=== PATIENT | female | born 1950 | race Hispanic/Latino ===

== ENCOUNTER 2020-06-15 20:08 | Inpatient (IN) | payer MEDICARE, OTHER ==
--- NOTE | 2020-06-15 21:20 | PDOC.FPRHP ---
- History of Present Illness Chief Complaint: Dysphagia History of Present Illness: Pt is a 69 yo F who presents as [facility] transfer to our facility for dysphagia and syncope. Patient states that one day ago she had a fall where she "blacked out" and woke up on the floor of her bedroom. She states that she was walking from her bathroom to her bedroom when the next thing she remembers is waking up on the floor. She admits to dizziness prior to her syncopal episode. This is the first time she has experienced this. This was an unwitnessed event. She admits to generalized weakness which has been an ongoing issue for her and attributes this to her dysphagia and inability to eat. In August of 2019 she started to experience dysphagia with foods and reportedly had multiple ER visits starting in the summer for her dysphagia which did not prompt any inpatient workup. She states that in April, she was seen by a GI outside of [facility] who placed an esophageal stent and removed it one week later. Pt did not fi nd improvement of her symptoms. She was told that her previous gastric sleeve surgery many years ago could have been the cause to her esophageal issues. She has been unable to eat or swallow any foods. She has been living off of [employer], and [email or web address] for the past 9 months. She has daily nausea and GERD symptoms. ED Course: LR - Allergies/Adverse Reactions Allergies Allergy/AdvReac Type Severity Reaction Status Date / Time levofloxacin [From Levaquin] Allergy Unknown Swelling Verified 06/15/20 23:57 Penicillins Allergy Unknown Hives Verified 06/15/20 23:57 Sulfa (Sulfonamide Allergy Unknown Swelling Verified 06/15/20 23:57 Antibiotics) SUDAFEN COLD-ALLERGY Allergy Unknown Rash Uncoded 06/15/20 23:57 - History PMHx: -HTN PSHx: -Laprascopic band surgery/gastric sleeve, 1993 -Abdominal hernia repair, 2016 -R breast lumpectomy FHx: -no family hx of cancer Social: -lives alone -previous smoker, quit 15 years ago, 30 pack year history -drinks a "full glass" of whiskey every night -no drug use - Review of Systems General: reports: weight/appetite/sleep changes. denies: fever/chills, fatigue Eyes: denies: vision changes ENT: denies: nasal congestion, rhinorrhea Respiratory: denies: cough, congestion, shortness of breath Cardiovascular: denies: chest pain, palpitation, edema Gastrointestinal: reports: nausea. denies: vomiting, diarrhea, constipation, abdominal pain, GI bleeding Genitourinary: denies: dysuria, polyuria Skin: denies: rashes, itching Musculoskeletal: denies: pain, tenderness, stiffness Neurological: reports: syncope, weakness. denies: numbness - Vital signs BP: 125/67, Pulse: 91, Resp: 20, Temp: 99.1 (Oral), Pain: 0, O2 sat: 99 on (Room Air), Time: 06/15/2020 20:25. VITAL SIGNS SunJun 15, 2020 21:30 Sherry RN, Diandra BP: 104/62, Pulse: 94, Resp: 16, Pain: 0, O2 sat: 100 on (Room Air), Time: 06/15/2020 21:30. - Physical Exam Constitutional: NAD, awake, alert and oriented, other (malnurished appearing) HEENT: normocephalic and atraumatic, grossly normal vision, grossly normal hearing Neck: supple Chest: no-tender to palpation Heart: RRR, normal S1/S2, no murmurs/rubs/gallops Lungs: CTAB, no respiratory distress, good air movement, no rales/rhonchi, no wheezing, no retractions Abdomen: soft, non-tender, bowel sounds present, no masses/distention Musculoskeletal: normal structure, ROM grossly normal Neurological: no focal deficit Skin: no rash/lesions, no jaundice, other (cap refill ~ 3 sec) Heme/Lymphatic: no unusual bruising or bleeding Psychiatric: normal mood and affect, good judgment and insight, intact recent and remote memory FMR H&P: Results - Labs Result Diagrams: 06/17/20 05:54 06/17/20 14:04 FMR H&P: A/P - Plan ##Syncope -DDX: hypovolemia, malnourishment, cardiac etiology -troponin neg initially -CTA head/neck, CT head -ECHO -admit to telemetry ##Malnourishment secondary to esophageal stricture -NPO @ 12AM in anticipation for GI consultation -dietary consulted -pre-albumin -control N/V with zofran prn ##Normocytic Anemia -Hgb 9.3, MCV 95 -iron studies ordered, b12, folate -peripheral smear ordered ##Metabolic Acidosis -Bicarb less than 9, CO2 18, pH 7.32 -respiratory compensation -most likely due to malnourished state and hx of vomiting Chronic Medical Conditions: ##HTN: pt has hx of HTN, unsure of medication she is on CODE: FULL VTE: Lovenox mIVF PCP: CC Dispo: admitted inpatient telemetry. syncopal w/u pending. GI consult in AM. FMR H&P: Upper Level - Plan Date/Time: 06/15/202119 I, Ben Wong PGY3, have evaluated this patient and agree with findings/plan as outlined by video intern resident. Pertinent changes/additions are listed here. 69-year-old female history of bariatric surgery Presents for vomiting and syncope. She has had recurrent vomiting since August 2019 and began to see gastroenterology. Later that year surgically cut the bariatric band and introduced esophageal stent. She has had several EGDs. Reports chronic decreased p.o. intake over the last year and currently does not tolerate solid food. On presentation to outside ER she was found to have bicarb of 9 pH of 7.34. Patient also states she had a syncopal episode at home 2 days ago, denied any chest pain or shortness of breath prior to event. This was unwitnessed at home where she lives alone. On exam patient is cachectic and obviously malnourished, cardiopulmonary exam within normal limits Assessment and plan Syncope Likely secondary to dehydration and malnourishment however considering unwitnessed event will admit to telemetry for full syncope work-up. Will get brain CT, CT angiogram of head and neck, echocardiogram, monitor electrolytes and monitor on telemetry. Malnourishment secondary to esophageal stricture We do not have records but patient seems to be adequate historian, will consult GI in the morning, consult nutrition. NPO for possibility of EGD, then will restart full liquid diet. Will add prealbumen to labs Metabolic Acidosis with respiratory compensation Etiology multifactoral including vomiting (though chloride borderline low) and dehydration. Bicarb less than 9, CO2 18, pH 7.32. By Diaz formula Respiratory compensation is appropriate. Likely will resolve by feeding. Per plan above. Intractible vomiting 2/2 esophageal stricture Zofran prn, otherwise f/u GI recs once consulted in AM normocytic anemia Likely multifactoral, suspect multiple nutritional deficiencies. Will get iron studies, B12, folate, retic count, and peripheral smear HTN MD aware, will restart home med if pt is able to remember what it is CODE: Full dispo: inpt, expect > 2 midnights Addendum - Attending - Attending Attestation Date/Time: 06/17/201999 I personally evaluated the patient and discussed the management with Dr. Correia at last visit. I agree with the History, Examination, Assessment and Plan documented above with any addition or exceptions noted below.
[2020-06-15] MEDS ORDERED: Ondansetron PF 4 MG/2 ML Vial IVP PRN (23:02)
[2020-06-15] MEDS ORDERED: Ondansetron ODT 4 MG TAB PO PRN (23:02)
[2020-06-15] MEDS ORDERED: Acetaminophen 325 MG TAB PO PRN (23:02)
[2020-06-16] MEDS: Sodium Chloride 0.9% 1,000 ML IV SCH ×2 (00:15→06:03)
[2020-06-16 03:37] LABS: Reticulocyte Count 2.3 % (0.5-1.5)
[2020-06-16 03:53] LABS: Band 1 % (5-11); Hemoglobin 8.1 g/dL (12.0-16.0); Hypochromia SLIGHT = 6-15 cells (100X) (0-5/hpf); Lymphocytes 33 % (21-51); MDiff Complete? YES; Mean Corpuscular HGB CONC 32.9 g/dL (32.0-36.0); Mean Corpuscular Hemoglobin 33.5 pg (27.0-31.0); Mean Platelet Volume 8.3 fL (7.4-10.4); Monocytes 6 % (0-10); Neutrophil 59 % (42-75); Platelet Count 307 thou/uL (130-400); Platelet Morphology Comment Appears Adequate; RBC Distribution Width 14.3 % (11.5-14.5); Red Blood Cell (RBC) Count 2.42 mill/uL (4.20-5.40); Target Cells SLIGHT = 2-5 cells (100X) (0-1/hpf); White Blood Cell (WBC) Count 3.4 thou/uL (4.8-10.8)
[2020-06-16 03:56] LABS: ALT (SGPT) 93 U/L (8-55); AST (SGOT) 175 U/L (5-34); Albumin 2.7 g/dL (3.4-4.8); Alkaline Phosphatase 121 U/L (40-110); Anion Gap 19 mmol/L (10-20); BUN (Urea Nitrogen) 7 mg/dL (9.8-20.1); Bilirubin, Total 1.1 mg/dL (0.2-1.2); Calc. Creatinine Clearance 92 mL/min (70-130); Calcium 7.6 mg/dL (7.8-10.44); Carbon Dioxide 14 mmol/L (23-31); Chloride 106 mmol/L (98-107); Globulin 2.4 g/dL (2.4-3.5); Glucose 87 mg/dL (80-115); Iron 73 ug/dL (50-170); Iron Binding Capacity, Total 71 mcg/dL (265-497); Potassium 3.9 mmol/L (3.5-5.1); Protein, Total 5.1 g/dL (5.8-8.1); Sodium 135 mmol/L (136-145)
[2020-06-16 05:05] LABS: Ferritin 3063.38 ng/mL (10-291)
--- NOTE | 2020-06-16 05:56 | PDOC.FM ---
- Subjective Subjective: Resting comfortably in bed. ECHO done this am. Denies CP, SOB, abdominal pain. Reports that she used to drink more heavily in the past, but does endorse 1 full glass of whiskey a day now. She saw Dr. Praful Garcia for her esophageal stent. - Objective MAR Reviewed: Yes Vital Signs & Weight: Vital Signs (12 hours) Temp Pulse Resp BP Pulse Ox 06/16/20 03:45 98.9 F 86 16 124/60 97 06/16/20 00:00 79 06/15/20 22:55 98.5 F 86 16 139/69 100 Weight Weight 70.42 kg Result Diagrams: 06/16/20 03:22 06/16/20 03:22 EKG Reviewed by me: Yes (SR) Phys Exam - Physical Examination Constitutional: NAD HEENT: moist MMs Respiratory: no wheezing, no rales, clear to auscultation bilateral Cardiovascular: RRR Gastrointestinal: soft, non-tender Musculoskeletal: no edema Psychiatric: normal affect Skin: no rash Dx/Plan - Plan Plan: ##Syncope -DDX: hypovolemia, malnourishment, cardiac etiology -troponin neg initially -CTA head/neck: normal -ECHO - pending -will obtain orthostatics -transfer to medical ##Malnourishment -likely secondary to esophageal pathology vs. history of gastric band -called GI who recommended that patient f/u with previous surgeon, will attempt to reach surgeon for recommendations, if unable will consult out bariatric surgeons -dietary consulted -pre-albumin:12 -control N/V with zofran prn ##Macrocytic Anemia -Hgb 8.1, MCV 102 -Folate: 3.4, will begin supplementation, likely 2/2 to alcohol and poor nutritional intake ##Transaminitis -AST/ALT: 175/93 -could be 2/2 to alcohol -will obtain hep panel, RUQ Chronic Medical Conditions: ##HTN: pt has hx of HTN, unsure of medication, will contact pharmacy Dispo: admitted inpatient telemetry. syncopal w/u pending. GI consult in AM. Addendum - Attending - Attending Attestation Date/Time: 06/16/20 1059 I personally evaluated the patient and discussed the management with Dr. ha. I agree with the History, Examination, Assessment and Plan documented above with any addition or exceptions noted below. She has obvious physical and laboratory findings consistent with protein calorie malnutrition. We are going to attempt to contact her bariatric surgeon in [place] today to either arrange transfer or close outpatient followup. If we are unable to contact her surgeon, we will consult a provider from our bariatric team in the hospital. Dietary consult placed today as well. RUQ US for elevated LFTs. Also need to consider how her alcohol use is contributing to her disease processes. Echo will complete her syncope evaluation. No events overnight on tele so this is likely related to volume depletion. if tte negative will move to medical floor.
[2020-06-16] MEDS: Enoxaparin Sodium 40 MG/0.4 ML SYRINGE SC SCH (07:42)
--- NOTE | 2020-06-16 08:50 | CT ---
CTA OF THE HEAD WITH AND WITHOUT IV CONTRAST CTA OF THE NECK WITH IV CONTRAST: INDICATION: History of syncopal episode. TECHNIQUE: A CTA of the head with and without IV contrast was performed utilizing IV contrast and 3D reformatted images. A CTA of the neck was performed utilizing IV contrast and 3 D reformatted imaging. Axial, coronal, and sagittal reformatted images were constructed from the raw data. COMPARISON: None. FINDINGS: CT OF THE HEAD WITHOUT CONTRAST: No acute infarct, hemorrhage, or hydrocephalus is present. There is mild chronic small-vessel white matter ischemic change. Septum pellucidum and third ventricle are midline. Mastoid air cells and pa ranasal sinuses are clear. The skull is intact. CTA OF THE HEAD: There are mild vascular calcifications involving the cavernous ICAs. No hemodynamically significant stenosis, occlusion, or aneurysmal formation is evident. No abnormal enhancement is demonstrated. CTA OF THE NECK: There are mild vascular calcifications involving the aortic arch. The brachiocephalic artery origin is patent. The right subclavian artery origin is patent. The right vertebral artery is patent. The right common carotid artery is patent. The carotid bifurcation and cervical right ICA is patent. T he left common carotid artery, carotid bifurcation, and cervical left ICA is patent. The left subcla vian artery is patent. The left vertebral artery is patent throughout its cervical course. The visualized aerodigestive tract appears within normal limits. The parotid, submandibular, and thy roid gland appear within normal limits. No definite enlarged lymph nodes are evident. There is emph ysematous change involving the lung apices. No definite acute osseous abnormality is evident. There is scattered degenerative and osteoarthritic change. IMPRESSION: 1. No hemodynamically significant stenosis, occlusion, or aneurysmal formation involving the head or neck. 2. Mild chronic small-vessel white matter ischemic change. POS: BH
[2020-06-16] MEDS ORDERED: Iopamidol-370 76% 500 ML 1 ML ONE (10:19)
--- NOTE | 2020-06-16 11:59 | ULT ---
RIGHT UPPER QUADRANT ULTRASOUND CLINICAL HISTORY: Elevated AST and a.l. T. COMPARISON: None FINDINGS: Liver:Diffusely echogenic. No focal hepatic lesion. Intrahepatic bile ducts: No intrahepatic or extrahepatic biliary dilation.; Common bile duct: 3.4 mm. Gallbladder: There are low-level reverberation echoes seen within the gallbladder which did not persi st on all images and is likely artifactual. Galvez's sign:None Main portal vein:Patent with hepatopedal flow. Pancreas:Not well seen due to overlying bowel gas Right kidney: Right kidney measures 11.0 x 4.5 x 4.5 cm. No focal renal lesion or hydronephrosis. Additional findings: None. IMPRESSION: Diffuse fatty infiltration of the liver.
[2020-06-16 14:56] LABS: HBSAB Concentration Less than 8.00 mIU/mL; Hep B Surf AB Non-Reactive (NonReactive); Hep B Surf Ag Non-Reactive S/CO (NonReactive); Hep C IgG Ab Non-Reactive (NonReactive); Hep C Index 0.12 S/CO (0-0.79)
[2020-06-16] MEDS: Dextrose 5%-Lactated Ringers 1,000 ML IV SCH (16:10)
--- NOTE | 2020-06-16 16:37 | PDOC.EVN ---
Event Note - Event Note Event Note: Spoke with Dr. Garcia at [facility] who had previously placed an esophageal stent to help with patient's sx. stated her upper GI endoscopy was relatively unremarkable and her lap band was already removed by another surgeon. He stated he didnt feel there was much more to do for her surgically and stated that he felt that TPN may be a good option for her. he mentioned that he has had compliance issues with her in the past and that she may be noncompliant for some sort of secondary gain but did not mention anything specific. Will consult Dr. Gutierrez from gen surg/bariatrics and have him evaluate the patient. Will likely proceed with tube feeding vs TPN pending Dr. Gutierrez's evaluation.
[2020-06-16] MEDS: Pantoprazole 40 MG VIAL IVP SCH (20:55)
[2020-06-16] MEDS: Multivitamins, Adult 10 ML, Folic Acid 1 MG, Thiamine HCl 100 MG in Dextrose 5 %-0.45 %... IV SCH (20:55)
--- NOTE | 2020-06-16 23:46 | CON ---
DATE OF CONSULTATION: 06/16/2020 CHIEF COMPLAINT: Dysphagia. HISTORY OF PRESENT ILLNESS: This is a 69-year-old female with a long complex surgical history. She originally had laparoscopic gastric band placed in [place] in 1993. This started to cause dysphagia, chronic nausea, vomiting in the spring. Ultimately, this led to band removal where she had presented to [facility] in [place] with a prolapsed lap band. After the band was removed, she did well for a little while, but developed more dysphagia, ultimately presented to [facility] in [place], where she was found to have stricture of the esophagus, this was done by Dr. Guero Garcia. Dr. Guero Garcia placed stent, that was in for a week. She had no pain with this. She was able to eat some. He removed it and her dysphagia returned. She now presents with chronic failure to thrive, unable to tolerate anything other than a liquid diet. Otherwise, abdominal surgery history involves incisional hernia repair with mesh in the upper abdomen. She denies any abdominal pain. She denies odynophagia. She denies hematemesis. States that she has never been on tube feedings. She has never had TPN. She has been told she had horrible nutrition based on her labs in the past. PAST MEDICAL HISTORY: Otherwise includes hypertension. SURGICAL HISTORY: Above. MEDICATIONS: Taken daily, see list. ALLERGIES: LEVOFLOXACIN, PENICILLIN, SULFA, AND SUDAFED. SOCIAL HISTORY: No smoking. She drinks socially, one glass of wine or whiskey a day. She is . REVIEW OF SYSTEMS: Ten-system review of systems is otherwise negative unless described above. PHYSICAL EXAMINATION: VITAL SIGNS: Blood pressure 99/54, pulse 80, and respirations 16. HEENT: Sclerae anicteric. Oropharynx clear. NECK: No lymphadenopathy. CHEST: Clear. HEART: Regular rate. ABDOMEN: Soft. Well-healed upper midline incision without recurrent hernia. EXTREMITIES: No ischemia or edema to extremities. LABORATORY DATA: White blood cell count is 3, hemoglobin is 8, platelet count is 307. Sodium 135, potassium is 3.9, creatinine is 0.66. AST, ALT, and alkaline phosphatase are mildly elevated. Albumin is 2.7. Pre-albumin is 12. B12 is normal at 1064. Folate low at 3.4. Ferritin is high at . [facility] [place], no stenosis, aneurysm, abdominal ultrasound, diffuse fatty infiltration of liver, otherwise negative. ASSESSMENT: 1. Chronic dysphagia with history of lap band that has been removed complicated by stricture, recent stent placement and removal by Dr. Garcia in [place] with subsequent increase and recurrent dysphagia. 2. Chronic protein-calorie malnutrition. 3. Hypertension. PLAN: I think the report is that she was unable to be transferred back to Dr. Garcia. I think she does need upper endoscopy, unsure of significance of this stricture. I wonder if it can be dilated or if it is going to need another stent to be placed. If another stent is going to have to be placed, she will have to be transferred because we do not place those stents locally. We will discuss with on [place]. I added thiamine daily to her medication list. Job ID: [id number]
[2020-06-17] MEDS: Dextrose 5%-Lactated Ringers 1,000 ML IV SCH ×3 (01:39→16:07)
--- NOTE | 2020-06-17 03:04 | CON ---
DATE OF CONSULTATION: 06/16/2020 REASON FOR CONSULT: Request EGD by Bariatric Surgery. HISTORY: Ms. Vaughn is a 69-year-old female who had a gastric band placed many years ago. Earlier this year in July and August, she began to have problems with progressive dysphagia. Ultimately in December, she went to the hospital [address], I think it was an [facility] hospital. There, she had an endoscopy and was told there was a problem with the band. The surgeon asked her if she wanted to keep it or have it removed, and she said to remove, so they took it off. Apparently, she did well for a while, but then began having problems with dysphagia again and could only drink liquids. She reports that she then went down to [facility] on . She got to where she could just drink broth and soups and liquids and they did another endoscopy while the bariatric surgeons saw her there and they put a stent in her, either lower esophagus or proximal stomach, and she did better, but that stayed that way for about a week. She followed up with that doctor afterwards and she was not eating well and she was tolerating liquids. He told her to continue to try to eat as much as she could. From June, she felt she was getting weaker. She would just drink some Boost at times and mainly G2 and soups. She was not drinking much in the way of Ensure. She drinks some [place] instant breakfast. She is drinking Pedialyte. She is vague about how much weight she lost, she is not sure. She has no pain with swallowing, but just cannot swallow solid things. ALLERGIES: LOVENOX, PENICILLIN, SULFA. PAST MEDICAL HISTORY: Hypertension. PAST SURGICAL HISTORY: Lap-Band, status post removal, H and P notes gastric sleeve per the residents, although she states she did not have a sleeve, this was in 1993; abdominal hernia repairs in 2015; she had a hysterectomy and appendectomy before that; right breast lumpectomy this past summer that was benign that was at [facility] and then she had the removal of the Lap-Band down at the [facility] on [address], seemingly in December; and the esophageal stent in April. Screening: She has had her previous Cologuard, she reports, is negative. FAMILY HISTORY: Significant for colorectal cancer, liver disease. SOCIAL HISTORY: She lives alone. She used to smoke, stopped 15 years ago. Drinks whiskey every night. Denies drug use. REVIEW OF SYSTEMS: Negative for cough, shortness of breath, aspiration pneumonia, fever, chills. She has lost some weight but cannot quantify how much. She denies any chest pain, shortness of breath, dyspnea on exertion, change in bowel function, constipation, abdominal pain. PHYSICAL EXAMINATION: VITAL SIGNS: Temperature is 98, pulse 80, blood pressure 99/54 to 102/58, respirations 16. LUNGS: Clear. HEART: Regular rate and rhythm without clicks or murmurs. ABDOMEN: Soft and nontender. There is no rebound. There is no guarding. EXTREMITIES: No clubbing, cyanosis, or edema. SKIN: Without rash or lesions. LABORATORY DATA: White count 3.4, hemoglobin 8.1, MCV 102, platelet count 307, retic 2.3. Sodium 135, potassium 3.9, bicarb 14, anion gap 19, BUN 7, creatinine 0.66. Iron 73, TIBC 71, ferritin is . AST 175, ALT 93, alkaline phosphatase 121, protein 5.1, prealbumin 12, vitamin B12 of 1064 and folate 3.14. ASSESSMENT: This is a 69-year-old female who comes in with reported complications with dysphagia after having a Lap-Band removed and she had multiple endoscopies and maybe even a stent placed for a time with reported "collapsed esophagus." This has been at two different hospitals [address], she went to [place] and now she is here. She states she can drink liquids, but cannot keep her weight up or keep her nutrition up, but she is not drinking anything nutritious. She has no problems drinking liquids and states she could drink seven or eight Ensures a day. She had with AST greater than ALT. She drinks alcohol regularly. This is likely an alcoholic hepatitis. She has elevated MCV, likely related to alcohol toxicity. She has low folate, possibly related to the same. Her B12 is normal. RECOMMENDATIONS: 1. Banana bag daily. 2. EGD tomorrow. 3. We will follow along with you. Job ID: [id number]
--- NOTE | 2020-06-17 05:49 | PDOC.FM ---
- Subjective Subjective: Patient is frustrated with plan for today feeling as if we are not trying to treat her problems. Explained to her that the EGD would allow us to look for abnormalities that could be causing her dysphagia. Patient is interested in either TPN or tube feedings for short period of time. Denies CP, SOB, Abd. pain. - Objective MAR Reviewed: Yes Vital Signs & Weight: Vital Signs (12 hours) Temp Pulse Resp BP Pulse Ox 06/16/20 20:00 98.3 F 88 18 124/81 94 L Weight Admit Weight 70.42 kg Weight 70.42 kg I&O: 06/15/20 06/16/20 06/17/20 06:59 06:59 06:59 Intake Total 240 119 Balance 240 119 Result Diagrams: 06/17/20 05:54 06/17/20 05:54 Phys Exam - Physical Examination Constitutional: NAD HEENT: moist MMs Neck: supple, full ROM Respiratory: no wheezing, no rales, clear to auscultation bilateral Cardiovascular: RRR Gastrointestinal: soft, non-tender Musculoskeletal: no edema Neurological: non-focal, moves all 4 limbs Psychiatric: normal affect Skin: no rash Dx/Plan - Plan Plan: ##Syncope -DDX: hypovolemia, malnourishment -troponin neg initially -CTA head/neck: normal -ECHO - EF 55-60%, moderately dilated LA -orthostatics: supine - 118/55, sitting - 116/56, standing - 102/60 ##Malnourishment -likely secondary to esophageal pathology vs. history of gastric band -see event note regarding conversation with patient's bariatric surgeon -Bariatric surgery, Dr. Gutierrez, consulted on 06/16 - recommend upped endo to assess need for dilation vs. stent - if stent needed, will need to see previous surgeon (Dr. Praful Garcia) - daily thiamine -GI, Dr. Juan, consulted on 06/16 - daily banana bag - upper endo planned for today -dietary consulted: TPN vs. feeding tube, will await recs following upper endo -control N/V with zofran prn ##Macrocytic Anemia -Hgb 8.1, MCV 102 -Folate: 3.4, will begin supplementation, likely 2/2 to alcohol and poor nutritional intake ##Transaminitis -AST/ALT: 175/93 > 99/66 -likely secondary to alcoholic hepatitis -Hep panel negative -RUQ US: diffuse fatty infiltrate -Daily banana bag per GI Chronic Medical Conditions: ##HTN: pt has hx of HTN, unsure of medication, will contact pharmacy Addendum - Attending - Attending Attestation Date/Time: 06/17/20 1201 I personally evaluated the patient and discussed the management with Dr. Young. I agree with the History, Examination, Assessment and Plan documented above with any addition or exceptions noted below. Underwent EGD with dilation today. Advancing diet over the next 24 hours. replacing mag, phos and k. awaiting additional GI recs.
[2020-06-17 06:12] LABS: #Basophils 0.1 thou/uL (0.0-0.2); #Eosinphils 0.1 thou/uL (0.0-0.7); #Lymphocytes 1.3 thou/uL (1.20-3.40); #Monocytes 0.3 thou/uL (0.11-0.59); #Neutrophils 1.3 thou/uL (1.40-6.50); %Basophils 1.7 % (0.0-1.0); %Eosinophils 4.5 % (0.0-10.0); %Lymphocytes 43.8 % (21.0-51.0); %Monocytes 8.5 % (0.0-10.0); %Neutrophils 41.5 % (42.0-75.0); Hemoglobin 7.8 g/dL (12.0-16.0); Mean Corpuscular HGB CONC 31.8 g/dL (32.0-36.0); Mean Corpuscular Hemoglobin 32.4 pg (27.0-31.0); Mean Platelet Volume 8.4 fL (7.4-10.4); Platelet Count 261 thou/uL (130-400); RBC Distribution Width 14.2 % (11.5-14.5); Red Blood Cell (RBC) Count 2.39 mill/uL (4.20-5.40); White Blood Cell (WBC) Count 3.1 thou/uL (4.8-10.8)
[2020-06-17 06:33] LABS: ALT (SGPT) 66 U/L (8-55); AST (SGOT) 99 U/L (5-34); Albumin 2.4 g/dL (3.4-4.8); Alkaline Phosphatase 104 U/L (40-110); Anion Gap 8 mmol/L (10-20); BUN (Urea Nitrogen) 4 mg/dL (9.8-20.1); Bilirubin, Total 0.9 mg/dL (0.2-1.2); Calc. Creatinine Clearance 94 mL/min (70-130); Calcium 7.9 mg/dL (7.8-10.44); Carbon Dioxide 24 mmol/L (23-31); Chloride 106 mmol/L (98-107); Gamma GT (GGT) 325 U/L (9-36); Globulin 2.2 g/dL (2.4-3.5); Glucose 142 mg/dL (80-115); Magnesium 1.3 mg/dL (1.6-2.6); Potassium 3.3 mmol/L (3.5-5.1); Protein, Total 4.6 g/dL (5.8-8.1); Sodium 135 mmol/L (136-145)
[2020-06-17 06:38] LABS: Phosphorus 1.7 mg/dL (2.3-4.7)
[2020-06-17] MEDS ORDERED: Magnesium 2 GM/50 ML 2 GM in Premix Bag 1 BAG IVPB SCH ×2 (06:45→10:00)
[2020-06-17] MEDS ORDERED: Potassium Phosphate 12 MMOL in Sodium Chloride 0.9% 100 ML IVPB SCH ×2 (06:45→15:30)
[2020-06-17] MEDS ORDERED: Midazolam HCl 2 mg/2 ml Vial ONE (08:52)
[2020-06-17] MEDS ORDERED: PROPOFOL 200 MG/20 ML VIAL ONE (08:58)
[2020-06-17] MEDS ORDERED: Lidocaine 1% PF 5 ML VIAL ONE (08:58)
--- NOTE | 2020-06-17 10:35 | OP ---
DATE OF PROCEDURE: 06/17/2020 PROCEDURE PERFORMED: Esophagogastroduodenoscopy with dilation. INDICATION FOR PROCEDURE: Dysphagia, history of gastric bypass/lap band gastroplasty. DESCRIPTION OF PROCEDURE: After the risks and benefits of the procedure were explained to the patient including risks of bleeding, infection, perforation, reactions to anesthesia, aspiration, and/or pain, informed consent was obtained. The patient was then taken to the endoscopy suite, where she was maneuvered into the left lateral decubitus position followed by introduction of deep sedation via propofol and anesthesia support. Once adequate sedation was achieved, the standard gastroscope was introduced into the mouth with intubation of the esophagus, stomach, and the proximal small intestines with the findings listed below. The patient tolerated the procedure well with no immediate perioperative complications. On conclusion of the procedure, all equipment was removed from the patient and she was transferred to PACU in satisfactory condition. EGD FINDINGS: Esophagus: Normal-appearing mucosa was seen in the proximal, mid, and distal esophagus. There was no irregularities at the gastroesophageal junction with a normal-appearing Z-line. There was no evidence of erosions, ulcerations, mass lesions, or active/recent bleeding. Stomach: Upon entry into the gastric lumen, a moderate-sized gastric pouch was seen with no mucosal irregularities or abnormalities; however, approximately mid stomach, there was a high-grade stricture noted that was initially difficult to traverse with the standard gastroscope. With some mild gentle pressure on the stricture and insufflation of air, this was able to be traversed with some difficulty. Upon entry into the distal stomach, normal-appearing mucosa was seen along the greater curvature, antrum, and incisura. There was no evidence of erosions, ulcerations, or mass lesions seen throughout the entire stomach. On gastric retroflexion, the retroflexed view showed the stomach extending away underneath the high-grade stricture and into the gastric cardia with the surgical anatomy consistent with a vertical-banded gastroplasty. Given the high-grade stricture and the patient's concurrent diagnosis of dysphagia, the stricture was then dilated to 12 mm using a CRE TTS esophageal balloon with mild disruption of the stricture/scar tissue of the stenosis and a mild amount of bleeding seen at the end of the maneuver. Duodenum: Normal-appearing mucosa was seen in both the duodenal bulb and second portion of the duodenum. There was no evidence of erosions, ulcerations, mass lesions, or active/recent bleeding. IMPRESSION: 1. High-grade stricture seen in the mid stomach ultimately dilated to 12 mm. 2. Surgical anatomy within the stomach consistent with a vertical band gastroplasty. RECOMMENDATIONS: 1. Would place the patient on a full liquid diet for the next 24 hours and then advance to a soft diet afterwards. I would avoid any higher fiber content foods or bulky solid foods that may not breakdown and not traverse the stricture/stenosis. 2. The patient may need to repeat dilation in approximately 3 weeks depending on the bariatric surgeon prerogative. 3. Would have the patient follow up with her outpatient bariatric surgeon for further management/revision. 4. Would avoid any anticoagulation for the next 24 to 48 hours given the mucosal disruption with dilation today and minimal amount of bleeding. We will sign off. Please call with any additional questions. Job ID: [id number]
[2020-06-17] MEDS: Enoxaparin Sodium 40 MG/0.4 ML SYRINGE SC SCH (12:08)
[2020-06-17] MEDS: Folic Acid 1 MG TAB PO SCH (12:08)
[2020-06-17] MEDS: Pantoprazole 40 MG VIAL IVP SCH ×2 (12:09→20:46)
[2020-06-17 14:45] LABS: Magnesium 1.7 mg/dL (1.6-2.6); Phosphorus 2.1 mg/dL (2.3-4.7); Potassium 3.8 mmol/L (3.5-5.1)
[2020-06-17] MEDS ORDERED: Potassium Phosphate 9 MMOL in Sodium Chloride 0.9% 100 ML IVPB SCH (15:30)
[2020-06-17] MEDS: Multivitamins, Adult 10 ML, Folic Acid 1 MG, Thiamine HCl 100 MG in Dextrose 5 %-0.45 %... IV SCH (20:45)
[2020-06-18] MEDS: Dextrose 5%-Lactated Ringers 1,000 ML IV SCH ×4 (01:56→18:23)
--- NOTE | 2020-06-18 06:41 | PDOC.FM ---
- Subjective Subjective: Denies CP, SOB, abdominal pain. Reports that she has been tolerating liquids. Discussed recommendations to f/u with Dr. Jama Boyd at [facility] for possible revision/resection and patient is understanding. - Objective MAR Reviewed: Yes Vital Signs & Weight: Vital Signs (12 hours) Temp Pulse Resp BP Pulse Ox 06/17/20 20:00 97.9 F 77 20 100/60 97 06/17/20 19:00 100 Weight Admit Weight 70.42 kg Weight 74.389 kg I&O: 06/16/20 06/17/20 06/18/20 06:59 06:59 06:59 Intake Total 240 1094 2920 Balance 240 1094 2920 Result Diagrams: 06/18/20 07:10 06/18/20 05:31 Phys Exam - Physical Examination Constitutional: NAD HEENT: moist MMs Neck: supple Respiratory: no wheezing, clear to auscultation bilateral Cardiovascular: RRR Gastrointestinal: soft, non-tender, positive bowel sounds Musculoskeletal: no edema Neurological: non-focal Psychiatric: normal affect Skin: no rash Dx/Plan - Plan Plan: ##Syncope -DDX: hypovolemia, malnourishment -troponin neg initially -CTA head/neck: normal -ECHO - EF 55-60%, moderately dilated LA -orthostatics: supine - 118/55, sitting - 116/56, standing - 102/60 ##Malnourishment 2/2 to gastric stricture -s/p dilation with EGD on 06/17 -see event note regarding conversation with patient's bariatric surgeon -Bariatric surgery, Dr. Gutierrez, consulted on 06/16 - upped endo by GI with gastric stricture found - will likely need revision/resection with Dr. Jama Boyd at [facility] - daily thiamine -GI, Dr. Juan, consulted on 06/16 - s/p EGD with dilation - daily banana bag - hold antigoagulation for 24-48 hrs post dilation - advance diet as tolerated to soft diet -dietary consulted: TPN vs. feeding tube, will discuss now that patient is tolerating some food -control N/V with zofran prn ##Macrocytic Anemia -Hgb: 7.5, decreased could be secondary to hemodilution -Folate: 3.4, will begin supplementation, likely 2/2 to alcohol and poor nutritional intake ##Transaminitis -AST/ALT: 175/93 > 99/66 > 94/64 -likely secondary to alcoholic hepatitis, on thiamine and folic acid -Hep panel negative -RUQ US: diffuse fatty infiltrate -Daily banana bag per GI Chronic Medical Conditions: ##HTN: home amlodipine Dispo: likely DC home later today pending ability to tolerating soft diet Addendum - Attending - Attending Attestation Date/Time: 06/18/20 1107 I personally evaluated the patient and discussed the management with Dr. Young. I agree with the History, Examination, Assessment and Plan documented above with any addition or exceptions noted below. if she can tolerate solids over lunch can d/c home. will work on arranging f/u with the surgeon recommended in [place] by Dr. gutierrez. Will send on thiamin, mag, potassium, and folate supplements.
[2020-06-18 06:51] LABS: ALT (SGPT) 64 U/L (8-55); AST (SGOT) 94 U/L (5-34); Albumin 2.3 g/dL (3.4-4.8); Alkaline Phosphatase 99 U/L (40-110); Anion Gap 11 mmol/L (10-20); BUN (Urea Nitrogen) Less than 4 mg/dL (9.8-20.1); Bilirubin, Total 0.8 mg/dL (0.2-1.2); Calc. Creatinine Clearance 114 mL/min (70-130); Calcium 7.6 mg/dL (7.8-10.44); Carbon Dioxide 21 mmol/L (23-31); Chloride 108 mmol/L (98-107); Glucose 139 mg/dL (80-115); Magnesium 1.8 mg/dL (1.6-2.6); Phosphorus 2.8 mg/dL (2.3-4.7); Protein, Total 4.3 g/dL (5.8-8.1); Sodium 137 mmol/L (136-145)
[2020-06-18 07:36] LABS: #Eosinphils 0.1 thou/uL (0.0-0.7); #Monocytes 0.2 thou/uL (0.11-0.59); #Neutrophils 1.2 thou/uL (1.40-6.50); %Basophils 1.5 % (0.0-1.0); %Eosinophils 5.2 % (0.0-10.0); %Lymphocytes 38.3 % (21.0-51.0); %Monocytes 7.5 % (0.0-10.0); %Neutrophils 47.5 % (42.0-75.0); Hemoglobin 7.5 g/dL (12.0-16.0); Mean Corpuscular HGB CONC 32.3 g/dL (32.0-36.0); Mean Corpuscular Hemoglobin 32.9 pg (27.0-31.0); Mean Platelet Volume 8.9 fL (7.4-10.4); Platelet Count 242 thou/uL (130-400); RBC Distribution Width 14.5 % (11.5-14.5); Red Blood Cell (RBC) Count 2.29 mill/uL (4.20-5.40); White Blood Cell (WBC) Count 2.6 thou/uL (4.8-10.8)
[2020-06-18] MEDS: Folic Acid 1 MG TAB PO SCH (08:34)
[2020-06-18] MEDS: Amlodipine 5 MG TAB PO SCH (08:34)
[2020-06-18] MEDS: tiZANidine HCl 4 MG TAB PO SCH (08:34)
[2020-06-18] MEDS: Pantoprazole 40 MG VIAL IVP SCH ×2 (08:35→21:13)
[2020-06-18] MEDS ORDERED: Potassium Chloride 20 MEQ in Premix Bag 1 BAG IVPB SCH (09:30)
--- NOTE | 2020-06-18 09:52 | PQF ---
CLINICAL DOCUMENTATION CLARIFICATION FORM: Dear Dr. Danielito Wong Date: 06/18/20 Please exercise your independent, professional judgment in responding to the clarification form. Clinical indicators are provided on the bottom of this form for your review. Please check appropriate box(es): [ X ] Protein Calorie Malnutrition: [ ] Mild [ ] Moderate [ X ] Severe [ ] Other Malnutrition (please specify) [ ] Underweight without malnutrition [ ] Cachexia [ ] Other diagnosis [ ] Unable to determine In addition, please specify: Present on Admission (POA): [X ] Yes [ ] No [ ] Unable to determine For continuity of documentation, please document condition throughout progress notes and discharge summary. Thank You. To be completed by CDI/Coding staff for physician review: CLINICAL INDICATORS - SIGNS / SYMPTOMS / LABS / RESULTS AND LOCATION IN MR H&P 06/15: Malnourishment 2/2 esophageal stricture; patient is cachectic & obviously malnourished PN 06/16: She has obvious physical & laboratory findings c/w protein calorie malnutrition Head Paper Tester Assmt 06/16: Nutrition diagnosis: Malnutrition r/t esophageal pathology vs gastric band, as evidenced by patient meeting <50% of estimated needs for >3 months w/globalized moderate muscle wasting & fat loss w/ 30.4% weight loss in 9 months suggestive of Severe Malnutrition in the context of chronic illness GS Consult 06/16: Chronic protein calorie malnutrition RISK FACTORS / RESULTS AND LOCATION IN MR Chronic protein calorie malnutrition (GS consult, 06/16) Hx prolapsed lab band w/removal (GS consult, 06/16) Dysphagia (H&P, 06/15) TREATMENT / RESULTS AND LOCATION IN MR Head Paper Tester's consult (Physician order, 06/15) EGD w/dilation (OP Report, 06/17) Moderate Malnutrition (in acute illness) Energy Intake: <75% of estimated energy requirement for > 7 days Weight Loss: 1-2%/1 week; 5%/ 1 month; 7.5%/3 months Other: mild body fat loss; mild muscle mass loss; mild fluid accumulation; Severe Malnutrition (in acute illness) Energy Intake: = 50% of estimated energy requirement for = 5 days Weight Loss: >2%/1 week; >5%/1 month; >7.5%/3 months Other: moderate body fat loss; moderate muscle mass loss; moderate- severe fluid accumulation; measurably reduced flex o writer operator strength Moderate Malnutrition (in chronic illness) Energy Intake: <75% of estimated energy requirement for =1 month Weight Loss: 5%/1 month; 7.5%/3 months; 10%/6 months; 20%/1 year Other: mild body fat loss; mild muscle mass loss; mild fluid accumulation Severe Malnutrition (in chronic illness) Energy Intake: =75% of estimated energy requirement for =1 month Weight Loss: >5%/1 month; >7.5%/3 months; >10%/6 months; >20%/1 year Other: severe body fat loss; severe muscle mass loss; severe fluid accumulation; measurably reduced flex o writer operator strength Thank you! CDS Signature: Lydia Campbell RN, BSN Phone #: Ext [phone] Date: 06/18/20 This is a permanent part of the Medical Record [facility]
--- NOTE | 2020-06-18 09:55 | PDOC.GSPN ---
Surgery Progress Note: Subj - Subjective Narrative: Mrs. Vaughn is a 69 year old female with hx of vertical banded gastroplasty, who is one day status post EGD with dilation. She reports that she is feeling some weakness today, was able to eat a couple bites of grits this morning and will try to continue with soft diet at lunch. She is able to drink plenty of fluids. She is able to pass gas. Surgery Progress Note: Obj - Vital signs Vital signs: Vital Signs - Most Recent Temp Pulse Resp BP Pulse Ox 98.5 F 71 16 113/72 98 06/18/20 08:00 06/18/20 08:34 06/18/20 08:00 06/18/20 08:34 06/18/20 08:30 - Physical Exam Cardiovascular: regular rate and rhythm Respiratory: clear to auscultation Abdomen: soft, non tender, positive bowel sounds Surgery Progress Note: Results - Labs Result Diagrams: 06/18/20 07:10 06/18/20 05:31 Lab results: Laboratory Results - last 12 hr 06/18/20 06/18/20 05:31 07:10 WBC 2.6 L RBC 2.29 L Hgb 7.5 L Hct 23.3 L MCV 102.0 H MCH 32.9 H MCHC 32.3 RDW 14.5 Plt Count 242 MPV 8.9 Neutrophils % 47.5 Lymphocytes % 38.3 Monocytes % 7.5 Eosinophils % 5.2 Basophils % 1.5 H Neutrophils # 1.2 L Lymphocytes # 1.0 L Monocytes # 0.2 Eosinophils # 0.1 Basophils # 0.0 Sodium 137 Potassium 3.0 L Chloride 108 H Carbon Dioxide 21 L Anion Gap 11 BUN Less than 4 L Creatinine 0.56 L Estimated GFR (MDRD) Greater than 90 Glucose 139 H Calcium 7.6 L Phosphorus 2.8 Magnesium 1.8 Total Bilirubin 0.8 AST 94 H ALT 64 H Alkaline Phosphatase 99 Serum Total Protein 4.3 L Albumin 2.3 L Globulin 2.0 L Albumin/Globulin Ratio 1.2 Surgery Progress Note: A/P - Plan Plan: She will likely be discharged to home today if she can tolerate soft diet. Discussed possible referral to Dr. Boyd at [facility] [place], [place] for revision of VBG. Addendum - Physician - Physician Attestation Date/Time: 06/18/20 3444 I personally performed or re-performed the physical examination and medical decision making. I have verified all student documentation or findings, including history, physical exam and/or medical decision making. \ tolerating liquids. No vomitting She will need revision of this VBG surgically. I recommend Dimitrios Medeiros in the medical center. If she doesn't want surgery she could have PEG feeding tube.
[2020-06-18] MEDS: Multivitamins, Adult 10 ML, Folic Acid 1 MG, Thiamine HCl 100 MG in Dextrose 5 %-0.45 %... IV SCH (21:14)
[2020-06-19 05:09] VITALS: BMI 27.5
[2020-06-19] MEDS: Dextrose 5%-Lactated Ringers 1,000 ML IV SCH (05:18)
--- NOTE | 2020-06-19 06:24 | PDOC.FM ---
- Subjective Subjective: Ms. Vaughn is doing well this morning. She states she was not able to tolerate soft diet yesterday but is willing to try again today. She feels she might be too weak to go home because she would feel lightheaded on standing prior to admission and she lives alone with family out of town. She has children and a neighbor available to take her home today if she is d/c. She would like to establish for "someone to come check on me". - Objective Vital Signs & Weight: Vital Signs (12 hours) Temp Pulse Resp BP Pulse Ox 06/19/20 04:00 99.0 F 78 18 98/64 94 L 06/19/20 00:00 99.2 F 77 18 116/74 95 06/18/20 20:00 98.6 F 74 18 104/67 99 Weight Admit Weight 70.42 kg Weight 75.07 kg I&O: 06/17/20 06/18/20 06/19/20 06:59 06:59 06:59 Intake Total 1094 2920 2930 Balance 1094 2920 2930 Result Diagrams: 06/18/20 07:10 06/18/20 05:31 Phys Exam - Physical Examination Constitutional: NAD Neck: supple, full ROM Respiratory: clear to auscultation bilateral Cardiovascular: RRR, no significant murmur Musculoskeletal: no edema b/l LE atrophied Neurological: non-focal, moves all 4 limbs Psychiatric: normal affect, A&O x 3 Skin: no rash Dx/Plan - Plan Plan: Syncope -Likely 2/2 hypovolemia, malnourishment -CTA head/neck: normal -ECHO EF 55-60%, moderately dilated LA -orthostatics: supine - 118/55, sitting - 116/56, standing - 102/60 Malnourishment 2/2 to gastric stricture -s/p dilation with EGD on 06/17 -see event note regarding conversation with patient's bariatric surgeon -Bariatric surgery, Dr. Gutierrez, consulted on 06/16 - upper endo by GI with gastric stricture found - will likely need revision/resection with Dr. Jama Boyd at [facility] - daily thiamine -GI, Dr. Juan, consulted on 06/16 - s/p EGD with dilation - daily banana bag - hold anticoagulation for 24-48 hrs post dilation. Restart on 06/20 - advance diet to soft diet. If tolerated, can d/c -dietary consulted: TPN vs. feeding tube * Pt resistant to feeding tube given active lifestyle -control N/V with zofran prn Macrocytic Anemia -Hgb: 7.5, decreased could be secondary to hemodilution -Folate: 3.4, will begin supplementation, likely 2/2 to alcohol and poor nutritional intake -Lab break today Transaminitis -AST/ALT: 175/93 > 94/64 -likely secondary to alcoholic hepatitis, on thiamine and folic acid -Hep panel negative -RUQ US: diffuse fatty infiltrate -Daily banana bag per GI Chronic Medical Conditions: HTN: home amlodipine. Continue to monitor Dispo: likely d/c home later today pending ability to tolerate soft diet IVF: SL Diet: Soft diet GI Ppx: Protonix, per GI DVT Ppx: Resume 06/20 if not discharged, see above Code: Full PCP: MERARY Addendum - Attending - Attending Attestation Date/Time: 06/19/20 3196 I personally evaluated the patient and discussed the management with Dr. Yolanda Simons. I agree with the History, Examination, Assessment and Plan documented above with any addition or exceptions noted below. Patient stable. She tolerated 75% of dinner last night. Definitive treatment for her cannot be completed at this institution, but general surgery and GI have cleared for discharge. Since she is improved and able to tolerate liquids and some solids, she is stable for discharge and has been instructed thoroughly on exactly who she needs to follow up with outpatient.
[2020-06-19] MEDS: Amlodipine 5 MG TAB PO SCH (08:23)
[2020-06-19 08:24] VITALS: BP 105/56; TEMP 98.9
[2020-06-19] MEDS: Folic Acid 1 MG TAB PO SCH (08:24)
[2020-06-19] MEDS: Pantoprazole 40 MG VIAL IVP SCH (08:25)
[2020-06-19] MEDS: tiZANidine HCl 4 MG TAB PO SCH (08:25)
--- NOTE | 2020-06-22 00:31 | DIS ---
DATE OF ADMISSION: 06/15/2020 DATE OF DISCHARGE: 06/19/2020 RESIDENT: Natasha Young MD ADMITTING ATTENDING: Van Pa MD DISCHARGE ATTENDING: Howard Castorena MD. CONSULTS: 1. General surgery, Dr. Ragsdale. Keith. 2. GI, Dr. uJan. 3. Case Management, PT, OT. REPORT/IMAGES: 1. CTA of head and neck, no hemodynamically significant stenosis, occlusion or aneurysmal formation involving the head or neck. Mild chronic small vessel white matter ischemic changes. 2. Abdominal ultrasound, diffuse fatty infiltration of the liver. 3. Echocardiogram, left ventricular size normal, EF 55% to 60%, left atrium, [id number] dilation. 4. EGD with dilation. High-grade stricture seen in the mid stomach, ultimately dilated to 12 mm. Surgical anatomy within the stomach consistent with vertical band gastropathy. PRIMARY DIAGNOSES: 1. Malnourishment secondary to gastric stricture. 2. Syncope. SECONDARY DIAGNOSES: 1. Macrocytic anemia. 2. Transaminitis. 3. Hypertension. DISCHARGE MEDICATIONS: 1. Amlodipine 5 mg p.o. daily. 2. Tizanidine 4 mg p.o. daily. 3. Tamoxifen 20 mg p.o. daily. 4. Zofran 4 mg p.r.n. 5. Multivitamin one tablet p.o. daily. HISTORY OF PRESENT ILLNESS AND HOSPITAL COURSE: The patient is a 69-year-old female who presented as a transfer from [facility] for reported dysphagia and syncope. Patient reports that one day ago she had fallen and blacked out. She admits to dizziness prior to syncopal episode. She reports that she has not been able the eat for 9 months. She reports that she has only been tolerating liquids during this time. The patient reports history of vertical gastric band many years ago and recently had esophageal stent placed in April. She reports her symptoms did not resolve with this. During her hospital stay, General Surgery and GI were consulted. The EGD revealed that patient had a gastric stricture. The gastric stricture was dilated and it was recommended that the patient make an appointment with Dr. Anderson Boyd at [facility] for revision resection of her vertical gastric band. The patient was provided with the doctors phone number as well as address to make the appointment as it was Sunday afternoon and the clinic was closed. Patient's macrocytic anemia and transaminitis were likely secondary to alcohol intake. The patient was counseled regarding discontinuation of alcohol intake and was provided with thiamin during her stay as well as folic acid. The patient was discharged home on a multivitamin. On day of discharge, the patient was tolerating p.o. intake and was able to eat 75% of her dinner the night before discharge. DISPOSITION: Stable. LOCATION: Home. DIET: No restrictions. ACTIVITY: As tolerated. FOLLOWUP: Follow up with primary care physician in 7 days and schedule appointment with Dr. Anderson Boyd at [facility] for likely revision and resection. Job ID: [id number] MTDD
--- NOTE | 2020-06-22 01:57 | PQF ---
Dear : Howard Maxwell Date 06/22/2020 Please exercise your independent, professional judgment in responding to the clarification form. Clinical indicators are provided on the bottom of this form for your review Can you please further clarify if Stenosis of esophagus is a complication of recent gastric bypass or not? Please check appropriate box(es): [ ] Stenosis of esophagus is a complication of recent gastric bypass [ ] Stenosis of esophagus is not a complication of recent gastric bypass [ ] Other diagnosis please specify [ X] Unable to determine Physician Signature: Date/Time: For continuity of documentation, please document condition throughout progress notes and discharge summary. Thank You. To be completed by CDI/Coding staff for physician review: Present Clinical Indicators - Signs / Symptoms / Labs Results and Location in Medical Record [ x ] Dysphagia and syncope H and P pg.1 [ x ] Placed an esophageal stent and removed it one week later H and P pg.1 [ x ] Malnourishment secondary to esophageal stricture H and P pg.3 [ x ] Chronic dysphagia with hx of lap band that has been removed complicated by stricture Consult pg.2 Dr. Gutierrez [ x ] Recent stent placement and removal Consult pg.2 Dr. Gutierrez [ x ] Comes in with reported complications with dysphagia after having a lap band removed Consult pg.2 Dr. Juan [ x ] Collapsed esophagus Consult pg.2 Dr. Juan Present Risk Factors Results and Location in Medical Record [ x ] Hx of lap band surgery/ gastric sleeve, H and P pg.1 [ x ] Protein calorie malnutrition Family PN pg.3 [ x ] 69 years old Present Treatments Results and Location in Medical Record [ x ] EGD with dilation OP report pg.1 [ x ] IV Fluids MAR [ x ] Surgery Consult Dr. Gutierrez 06/16 [ x ] IV Antibiotics MAR [ x ] GI Consult Dr. Juan 06/16 CDS/Pharmacy Associate Signature: FreidaOrville chávez Waldo Phone #: ext [phone] Date 06/22/20 MTDD
== END 2020-06-19 17:57 | disposition home or self-care (01) | DRG 391 ==
LOC: ERS 20:08 → 2NO 22:13 → T4-B 06-16 17:12
PROVIDERS: ADMIT Family Medicine; ATTEND Family Medicine
PROC: 0D768ZZ Dilation of Stomach, Via Natural or Artificial Opening Endoscopic (ICD-10-PCS; principal; 2020-06-17)
DX: K22.2 Esophageal obstruction (principal); E43 Unspecified severe protein-calorie malnutrition; E87.2 Acidosis; E86.1 Hypovolemia; E86.0 Dehydration; Z20.822 Contact with and (suspected) exposure to COVID-19; K21.9 Gastro-esophageal reflux disease without esophagitis; I10 Essential (primary) hypertension; D64.9 Anemia, unspecified; R13.10 Dysphagia, unspecified; K70.10 Alcoholic hepatitis without ascites; Z88.0 Allergy status to penicillin; Z88.2 Allergy status to sulfonamides; Z88.8 Allergy status to other drugs, medicaments and biological substances; Z98.84 Bariatric surgery status; Z87.891 Personal history of nicotine dependence; Z68.27 Body mass index [BMI] 27.0-27.9, adult
CPT/HCPCS: 36415; 70496; 70498; 76705; 80053; 82607; 82728; 82746; 82977; 83540; 83550; 83735; 84100; 84134; 84443; 85025; 85046; 85060; 86706; 86708; 86803; 87340; 93306; 99284; C9113; J1650; J2250; J2704; J3411; J3475; J3480; J3490; J7042; Q9967

== ENCOUNTER 2021-06-11 21:57 | Inpatient (IN) | payer MEDICARE, OTHER ==
[2021-06-11] MEDS ORDERED: Acetaminophen 325 MG TAB PO PRN (23:37)
[2021-06-11] MEDS ORDERED: Ondansetron ODT 4 MG TAB PO PRN (23:37)
[2021-06-11] MEDS ORDERED: Dextrose 5%-Lactated Ringers 1,000 ML IV SCH (23:45)
[2021-06-12 01:17] LABS: Alcohol Less than 10 mg/dL (Less than 10); Phosphorus 2.9 mg/dL (2.3-4.7)
[2021-06-12 01:18] LABS: ALT (SGPT) 16 U/L (8-55); AST (SGOT) 49 U/L (5-34); Albumin 1.9 g/dL (3.4-4.8); Alkaline Phosphatase 118 U/L (40-110); Anion Gap 18 mmol/L (10-20); BUN (Urea Nitrogen) 8 mg/dL (9.8-20.1); Bilirubin, Total 1.6 mg/dL (0.2-1.2); Calc. Creatinine Clearance 68 mL/min (70-130); Calcium 7.3 mg/dL (7.8-10.44); Carbon Dioxide 17 mmol/L (23-31); Chloride 107 mmol/L (98-107); Glucose 217 mg/dL (80-115); Magnesium 1.5 mg/dL (1.6-2.6); Protein, Total 4.9 g/dL (5.8-8.1); Sodium 139 mmol/L (136-145)
[2021-06-12 01:30] LABS: Potassium 2.9 mmol/L (3.5-5.1)
[2021-06-12] MEDS ORDERED: Lactated Ringer's 1,000 ML IV SCH ×2 (02:00→19:45)
[2021-06-12] MEDS ORDERED: Magnesium 2 GM/50 ML 2 GM in Premix Bag 1 BAG IVPB SCH (02:00)
[2021-06-12] MEDS: Potassium Chloride 20 MEQ TAB PO SCH (02:06)
[2021-06-12] MEDS: Potassium Chloride 20 MEQ in Premix Bag 1 BAG IVPB SCH ×2 (02:11→11:20)
[2021-06-12 05:25] LABS: #Basophils 0.1 thou/uL (0.0-0.2); #Eosinphils 0.1 thou/uL (0.0-0.7); #Lymphocytes 1.6 thou/uL (1.20-3.40); #Monocytes 0.4 thou/uL (0.11-0.59); #Neutrophils 2.6 thou/uL (1.40-6.50); %Basophils 1.3 % (0.0-1.0); %Eosinophils 1.4 % (0.0-10.0); %Lymphocytes 33.9 % (21.0-51.0); %Monocytes 7.7 % (0.0-10.0); %Neutrophils 55.7 % (42.0-75.0); Hemoglobin 7.9 g/dL (12.0-16.0); Mean Corpuscular HGB CONC 32.3 g/dL (32.0-36.0); Mean Corpuscular Hemoglobin 33.4 pg (27.0-31.0); Mean Platelet Volume 8.5 fL (7.4-10.4); Platelet Count 248 thou/uL (130-400); RBC Distribution Width 13.5 % (11.5-14.5); Red Blood Cell (RBC) Count 2.37 mill/uL (4.20-5.40); White Blood Cell (WBC) Count 4.7 thou/uL (4.8-10.8)
[2021-06-12 06:01] LABS: Anion Gap 17 mmol/L (10-20); BUN (Urea Nitrogen) 8 mg/dL (9.8-20.1); Calc. Creatinine Clearance 70 mL/min (70-130); Calcium 7.7 mg/dL (7.8-10.44); Carbon Dioxide 17 mmol/L (23-31); Chloride 106 mmol/L (98-107); Glucose 165 mg/dL (80-115); Magnesium 2.1 mg/dL (1.6-2.6); Phosphorus 2.8 mg/dL (2.3-4.7); Potassium 3.3 mmol/L (3.5-5.1); Sodium 137 mmol/L (136-145)
[2021-06-12] MEDS ORDERED: Potassium Chloride 20 MEQ TAB PO SCH (06:30)
[2021-06-12] MEDS ORDERED: Potassium Chloride 20 MEQ in Premix Bag 1 BAG IVPB SCH (10:00)
[2021-06-12] MEDS: Multivit, Therapeutic 1 TAB PO SCH (10:09)
[2021-06-12] MEDS: Thiamine 100 MG TAB PO SCH (10:09)
[2021-06-12] MEDS: Folic Acid 1 MG TAB PO SCH (10:09)
[2021-06-12] MEDS: Dextrose 5%-Lactated Ringers 1,000 ML IV SCH ×2 (11:24→16:03)
[2021-06-12 12:50] LABS: Anion Gap 13 mmol/L (10-20); BUN (Urea Nitrogen) 7 mg/dL (9.8-20.1); Calc. Creatinine Clearance 74 mL/min (70-130); Calcium 7.4 mg/dL (7.8-10.44); Carbon Dioxide 21 mmol/L (23-31); Chloride 108 mmol/L (98-107); Glucose 141 mg/dL (80-115); Magnesium 1.7 mg/dL (1.6-2.6); Phosphorus 2.3 mg/dL (2.3-4.7); Sodium 138 mmol/L (136-145)
[2021-06-12 18:21] LABS: Anion Gap 15 mmol/L (10-20); BUN (Urea Nitrogen) 7 mg/dL (9.8-20.1); Calc. Creatinine Clearance 74 mL/min (70-130); Calcium 7.6 mg/dL (7.8-10.44); Carbon Dioxide 18 mmol/L (23-31); Chloride 105 mmol/L (98-107); Glucose 171 mg/dL (80-115); Potassium 3.8 mmol/L (3.5-5.1); Sodium 134 mmol/L (136-145)
[2021-06-12] MEDS: Mirtazapine 30 MG TAB PO SCH (20:39)
[2021-06-13 01:06] LABS: Bilirubin Negative (Negative); Blood, Urine Negative (Negative); Glucose, Urine (Dipstick) Negative (Negative); Ketone, Urine Negative (Negative); Leukocyte Negative (Negative); Nitrite Negative (Negative); Protein, Urine (Dipstick) Negative (Neg-Trace); pH, Urine 6.5 (5.0-9.0)
[2021-06-13 01:11] LABS: Clarity Cloudy (Clear)
[2021-06-13 01:14] LABS: RBC/HPF 0-3 HPF (0-3); WBC/HPF 0-3 HPF (0-3)
[2021-06-13 01:15] LABS: Bacteria/HPF 4+ HPF (None Seen)
[2021-06-13 01:29] LABS: Squamous Epithelial 0-3 HPF (0-3)
[2021-06-13 01:30] LABS: Urine Culture Reflex Yes Yes
[2021-06-13] MEDS: Dextrose 5%-Lactated Ringers 1,000 ML IV SCH ×2 (03:10→17:48)
[2021-06-13 05:43] LABS: #Basophils 0.1 thou/uL (0.0-0.2); #Eosinphils 0.1 thou/uL (0.0-0.7); #Lymphocytes 1.3 thou/uL (1.20-3.40); #Monocytes 0.2 thou/uL (0.11-0.59); #Neutrophils 1.7 thou/uL (1.40-6.50); %Basophils 2.1 % (0.0-1.0); %Eosinophils 2.5 % (0.0-10.0); %Lymphocytes 39.8 % (21.0-51.0); %Monocytes 5.8 % (0.0-10.0); %Neutrophils 49.9 % (42.0-75.0); Hemoglobin 6.6 g/dL (12.0-16.0); Mean Corpuscular HGB CONC 34.4 g/dL (32.0-36.0); Mean Corpuscular Hemoglobin 35.3 pg (27.0-31.0); Mean Platelet Volume 8.9 fL (7.4-10.4); Platelet Count 206 thou/uL (130-400); RBC Distribution Width 13.3 % (11.5-14.5); Red Blood Cell (RBC) Count 1.87 mill/uL (4.20-5.40); White Blood Cell (WBC) Count 3.4 thou/uL (4.8-10.8)
[2021-06-13 08:17] LABS: Anion Gap 13 mmol/L (10-20); BUN (Urea Nitrogen) 5 mg/dL (9.8-20.1); Calc. Creatinine Clearance 77 mL/min (70-130); Calcium 7.6 mg/dL (7.8-10.44); Carbon Dioxide 19 mmol/L (23-31); Chloride 108 mmol/L (98-107); Glucose 211 mg/dL (80-115); Potassium 3.6 mmol/L (3.5-5.1); Sodium 136 mmol/L (136-145)
[2021-06-13] MEDS: Potassium Chloride 20 MEQ TAB PO SCH (09:28)
[2021-06-13] MEDS: Thiamine 100 MG TAB PO SCH (09:28)
[2021-06-13] MEDS: Folic Acid 1 MG TAB PO SCH (09:28)
[2021-06-13 10:08] LABS: Magnesium 1.4 mg/dL (1.6-2.6)
[2021-06-13 10:14] LABS: Phosphorus 1.9 mg/dL (2.3-4.7)
[2021-06-13] MEDS ORDERED: Magnesium 2 GM/50 ML 2 GM in Premix Bag 1 BAG IVPB SCH (11:00)
[2021-06-13] MEDS ORDERED: PHOS-NAK 1 PKT PACK PO SCH (12:00)
[2021-06-13] MEDS: Multivit, Therapeutic 1 TAB PO SCH (13:08)
[2021-06-13] MEDS: cefTRIAXone\\ROCEPHIN 1 GM in Sodium Chloride 0.9% 100 ML IVPB SCH (17:48)
[2021-06-13] MEDS: Mirtazapine 30 MG TAB PO SCH (21:22)
[2021-06-14] MEDS: Dextrose 5%-Lactated Ringers 1,000 ML IV SCH ×3 (00:26→19:48)
[2021-06-14 04:58] LABS: #Basophils 0.1 thou/uL (0.0-0.2); #Eosinphils 0.1 thou/uL (0.0-0.7); #Lymphocytes 1.7 thou/uL (1.20-3.40); #Monocytes 0.4 thou/uL (0.11-0.59); #Neutrophils 3.3 thou/uL (1.40-6.50); %Basophils 1.3 % (0.0-1.0); %Eosinophils 1.6 % (0.0-10.0); %Lymphocytes 31.1 % (21.0-51.0); %Neutrophils 59.1 % (42.0-75.0); Hemoglobin 8.8 g/dL (12.0-16.0); Mean Corpuscular HGB CONC 32.2 g/dL (32.0-36.0); Mean Corpuscular Hemoglobin 31.8 pg (27.0-31.0); Mean Corpuscular Volume 98.7 fL (78.0-98.0); Mean Platelet Volume 8.5 fL (7.4-10.4); Platelet Count 209 thou/uL (130-400); Red Blood Cell (RBC) Count 2.77 mill/uL (4.20-5.40); White Blood Cell (WBC) Count 5.6 thou/uL (4.8-10.8)
[2021-06-14 05:15] LABS: Anion Gap 12 mmol/L (10-20); BUN (Urea Nitrogen) 5 mg/dL (9.8-20.1); Calc. Creatinine Clearance 80 mL/min (70-130); Calcium 7.7 mg/dL (7.8-10.44); Carbon Dioxide 20 mmol/L (23-31); Chloride 109 mmol/L (98-107); Glucose 197 mg/dL (80-115); Potassium 3.9 mmol/L (3.5-5.1); Sodium 137 mmol/L (136-145)
[2021-06-14] MEDS: Thiamine 100 MG TAB PO SCH (08:38)
[2021-06-14] MEDS: Folic Acid 1 MG TAB PO SCH (08:38)
[2021-06-14] MEDS: Multivit, Therapeutic 1 TAB PO SCH (08:38)
[2021-06-14 10:47] LABS: Magnesium 1.4 mg/dL (1.6-2.6); Phosphorus 2.5 mg/dL (2.3-4.7)
[2021-06-14] MEDS ORDERED: Magnesium 2 GM/50 ML 2 GM in Premix Bag 1 BAG IVPB SCH (12:30)
[2021-06-14] MEDS ORDERED: PHOS-NAK 1 PKT PACK PO SCH (16:00)
[2021-06-14] MEDS: cefTRIAXone\\ROCEPHIN 1 GM in Sodium Chloride 0.9% 100 ML IVPB SCH (19:43)
[2021-06-14] MEDS: Metoprolol Tartrate 25 MG TAB PO SCH (20:32)
[2021-06-14] MEDS: Mirtazapine 30 MG TAB PO SCH (20:33)
[2021-06-15] MEDS ORDERED: diphenhydrAMINE 25 MG CAP PO SCH (01:15)
[2021-06-15] MEDS ORDERED: Lactated Ringer's 500 ML IV SCH (03:00)
[2021-06-15 04:53] LABS: #Basophils 0.1 thou/uL (0.0-0.2); #Eosinphils 0.1 thou/uL (0.0-0.7); #Lymphocytes 1.5 thou/uL (1.20-3.40); #Monocytes 0.5 thou/uL (0.11-0.59); #Neutrophils 3.2 thou/uL (1.40-6.50); %Eosinophils 1.8 % (0.0-10.0); %Lymphocytes 27.8 % (21.0-51.0); %Monocytes 8.7 % (0.0-10.0); %Neutrophils 60.7 % (42.0-75.0); Hemoglobin 8.6 g/dL (12.0-16.0); Mean Corpuscular HGB CONC 32.2 g/dL (32.0-36.0); Mean Corpuscular Hemoglobin 32.4 pg (27.0-31.0); Mean Platelet Volume 8.8 fL (7.4-10.4); Platelet Count 200 thou/uL (130-400); RBC Distribution Width 14.6 % (11.5-14.5); Red Blood Cell (RBC) Count 2.64 mill/uL (4.20-5.40); White Blood Cell (WBC) Count 5.3 thou/uL (4.8-10.8)
[2021-06-15 05:20] LABS: Anion Gap 14 mmol/L (10-20); BUN (Urea Nitrogen) Less than 4 mg/dL (9.8-20.1); Calc. Creatinine Clearance 83 mL/min (70-130); Calcium 7.9 mg/dL (7.8-10.44); Carbon Dioxide 19 mmol/L (23-31); Chloride 109 mmol/L (98-107); Glucose 164 mg/dL (80-115); Potassium 3.5 mmol/L (3.5-5.1); Sodium 138 mmol/L (136-145)
[2021-06-15] MEDS: Dextrose 5%-Lactated Ringers 1,000 ML IV SCH ×3 (05:54→21:56)
[2021-06-15 06:07] LABS: Magnesium 1.5 mg/dL (1.6-2.6)
[2021-06-15] MEDS ORDERED: FLU VACC QS2021-22(65YR UP)/PF 240 MCG/0.7 ML SYRINGE IM ONE (09:00)
[2021-06-15] MEDS ORDERED: Magnesium 2 GM/50 ML 2 GM in Premix Bag 1 BAG IVPB SCH ×2 (09:45→22:00)
[2021-06-15] MEDS: Folic Acid 1 MG TAB PO SCH (09:55)
[2021-06-15] MEDS: Metoprolol Tartrate 25 MG TAB PO SCH ×2 (09:56→21:56)
[2021-06-15] MEDS: Multivit, Therapeutic 1 TAB PO SCH (09:56)
[2021-06-15] MEDS: Thiamine 100 MG TAB PO SCH (09:56)
[2021-06-15] MEDS ORDERED: PROPOFOL 200 MG/20 ML VIAL ONE (11:40)
[2021-06-15] MEDS ORDERED: Lidocaine 1% PF 5 ML VIAL ONE (11:40)
[2021-06-15] MEDS: cefTRIAXone\\ROCEPHIN 1 GM in Sodium Chloride 0.9% 100 ML IVPB SCH (17:17)
[2021-06-15 19:14] LABS: Magnesium 1.3 mg/dL (1.6-2.6); Phosphorus 2.5 mg/dL (2.3-4.7)
[2021-06-15] MEDS: Mirtazapine 30 MG TAB PO SCH (21:53)
[2021-06-15] MEDS: Magnesium Oxide 400 MG TAB PO SCH (23:57)
[2021-06-16 05:34] LABS: #Basophils 0.1 thou/uL (0.0-0.2); #Eosinphils 0.1 thou/uL (0.0-0.7); #Lymphocytes 1.4 thou/uL (1.20-3.40); #Monocytes 0.4 thou/uL (0.11-0.59); %Basophils 1.5 % (0.0-1.0); %Eosinophils 1.9 % (0.0-10.0); %Lymphocytes 27.7 % (21.0-51.0); %Monocytes 7.8 % (0.0-10.0); %Neutrophils 61.1 % (42.0-75.0); Hemoglobin 8.6 g/dL (12.0-16.0); Mean Corpuscular HGB CONC 32.5 g/dL (32.0-36.0); Mean Corpuscular Hemoglobin 32.4 pg (27.0-31.0); Mean Corpuscular Volume 99.7 fL (78.0-98.0); Mean Platelet Volume 9.9 fL (7.4-10.4); Platelet Count 190 thou/uL (130-400); RBC Distribution Width 14.3 % (11.5-14.5); Red Blood Cell (RBC) Count 2.67 mill/uL (4.20-5.40)
[2021-06-16 05:59] LABS: ALT (SGPT) 20 U/L (8-55); AST (SGOT) 55 U/L (5-34); Albumin 1.5 g/dL (3.4-4.8); Alkaline Phosphatase 114 U/L (40-110); Anion Gap 13 mmol/L (10-20); BUN (Urea Nitrogen) Less than 4 mg/dL (9.8-20.1); Bilirubin, Total 2.7 mg/dL (0.2-1.2); Calc. Creatinine Clearance 95 mL/min (70-130); Carbon Dioxide 20 mmol/L (23-31); Chloride 109 mmol/L (98-107); Globulin 2.8 g/dL (2.4-3.5); Glucose 142 mg/dL (80-115); Magnesium 1.3 mg/dL (1.6-2.6); Phosphorus 2.6 mg/dL (2.3-4.7); Potassium 3.7 mmol/L (3.5-5.1); Protein, Total 4.3 g/dL (5.8-8.1); Sodium 138 mmol/L (136-145)
[2021-06-16] MEDS: Dextrose 5%-Lactated Ringers 1,000 ML IV SCH (06:26)
[2021-06-16] MEDS: Magnesium Oxide 400 MG TAB PO SCH (09:14)
[2021-06-16] MEDS: Folic Acid 1 MG TAB PO SCH (09:15)
[2021-06-16] MEDS: Thiamine 100 MG TAB PO SCH (09:15)
[2021-06-16] MEDS: Multivit, Therapeutic 1 TAB PO SCH (09:15)
[2021-06-16] MEDS: Metoprolol Tartrate 25 MG TAB PO SCH ×2 (09:15→20:54)
[2021-06-16] MEDS ORDERED: Lactated Ringer's 500 ML IV SCH (15:30)
[2021-06-16] MEDS: cefTRIAXone\\ROCEPHIN 1 GM in Sodium Chloride 0.9% 100 ML IVPB SCH (16:51)
[2021-06-16] MEDS: Albumin 25% 25 GM/100 ML BOT IVPB SCH (18:02)
[2021-06-16] MEDS ORDERED: Clindamycin/D5W 900 MG in Premix Bag 1 BAG IVPB SCH (18:15)
[2021-06-16] MEDS ORDERED: Electrolyte Replacement Protocol FS PRN (19:00)
[2021-06-16] MEDS: Mirtazapine 30 MG TAB PO SCH (20:54)
[2021-06-16] MEDS ORDERED: guaiFENesin/DM ER PO PRN (21:04)
[2021-06-16] MEDS: Ondansetron PF 4 MG/2 ML Vial IVP PRN (21:19)
[2021-06-17] MEDS: Albumin 25% 25 GM/100 ML BOT IVPB SCH ×4 (02:00→19:54)
[2021-06-17] MEDS: Dextrose 5%-Lactated Ringers 1,000 ML IV SCH ×3 (02:00→22:36)
[2021-06-17 04:04] LABS: #Monocytes 0.3 thou/uL (0.11-0.59); #Neutrophils 3.2 thou/uL (1.40-6.50); %Basophils 1.1 % (0.0-1.0); %Eosinophils 0.9 % (0.0-10.0); %Lymphocytes 21.5 % (21.0-51.0); %Neutrophils 69.5 % (42.0-75.0); Hemoglobin 7.4 g/dL (12.0-16.0); Mean Corpuscular Hemoglobin 31.7 pg (27.0-31.0); Mean Corpuscular Volume 99.2 fL (78.0-98.0); Mean Platelet Volume 8.9 fL (7.4-10.4); Platelet Count 169 thou/uL (130-400); RBC Distribution Width 14.1 % (11.5-14.5); Red Blood Cell (RBC) Count 2.34 mill/uL (4.20-5.40); White Blood Cell (WBC) Count 4.6 thou/uL (4.8-10.8)
[2021-06-17 04:31] LABS: Anion Gap 10 mmol/L (10-20); BUN (Urea Nitrogen) 4 mg/dL (9.8-20.1); Calc. Creatinine Clearance 97 mL/min (70-130); Calcium 8.3 mg/dL (7.8-10.44); Carbon Dioxide 23 mmol/L (23-31); Chloride 110 mmol/L (98-107); Glucose 122 mg/dL (80-115); Magnesium 1.3 mg/dL (1.6-2.6); Potassium 3.8 mmol/L (3.5-5.1); Sodium 139 mmol/L (136-145)
[2021-06-17 04:32] LABS: Phosphorus 3.2 mg/dL (2.3-4.7)
[2021-06-17] MEDS ORDERED: Magnesium 2 GM/50 ML 2 GM in Premix Bag 1 BAG IVPB SCH ×3 (05:00→09:30)
[2021-06-17] MEDS: Magnesium 2 GM/50 ML 2 GM in Premix Bag 1 BAG IVPB SCH ×2 (07:05→08:45)
[2021-06-17] MEDS: Thiamine 100 MG TAB PO SCH (09:34)
[2021-06-17] MEDS: Multivit, Therapeutic 1 TAB PO SCH (09:34)
[2021-06-17] MEDS: Folic Acid 1 MG TAB PO SCH (09:34)
[2021-06-17] MEDS: Metoprolol Tartrate 25 MG TAB PO SCH (09:35)
[2021-06-17] MEDS ORDERED: Midazolam HCl 2 mg/2 ml Vial ONE (11:16)
[2021-06-17] MEDS ORDERED: Fentanyl 100 MCG/2 ML VIAL ONE ×2 (11:16→12:25)
[2021-06-17] MEDS ORDERED: HYDROmorphone 2 MG/ML VIAL ONE (12:38)
[2021-06-17] MEDS ORDERED: Rocuronium Bromide 50 MG/5 ML VIAL ONE (12:39)
[2021-06-17] MEDS ORDERED: Phenylephrine 10 MG/ML VIAL ONE (12:39)
[2021-06-17] MEDS ORDERED: Albumin 5% 500 ML ONE (12:49)
[2021-06-17] MEDS ORDERED: Norepinephrine 4 MG/4 ML VIAL ONE (12:49)
[2021-06-17] MEDS ORDERED: Clindamycin/D5W 900 mg/50 ml Premix Bag ONE (12:53)
[2021-06-17] MEDS ORDERED: Rocuronium Bromide 10 MG/ML (10ML VIAL) ONE (13:14)
[2021-06-17] MEDS ORDERED: PHENYLEPHRINE-NS 100 MCG/ML 10 ML SYRINGE ONE (13:14)
[2021-06-17] MEDS ORDERED: ePHEDrine 50 MG/ML VIAL ONE (13:14)
[2021-06-17] MEDS ORDERED: Succinylcholine 200 MG/10 ml SYRINGE FS ONE (13:14)
[2021-06-17] MEDS ORDERED: Lidocaine 1% PF 5 ML VIAL ONE (13:14)
[2021-06-17] MEDS ORDERED: Bupivacaine HCl 0.5%/Epinephrine 1:200,000/PF 30 ml Vial ONE (13:14)
[2021-06-17] MEDS ORDERED: PROPOFOL 200 MG/20 ML VIAL ONE (13:14)
[2021-06-17] MEDS ORDERED: Lactated Ringer's 1,000 ML IV SCH ×2 (13:30→16:15)
[2021-06-17] MEDS ORDERED: Fat Emulsion 250 ML IVPB SCH (14:00)
[2021-06-17] MEDS ORDERED: PACU-Morphine 4MG/ML VIAL SLOW IVP PRN (14:22)
[2021-06-17] MEDS ORDERED: Promethazine HCl 25 MG/ML VIAL IM PRN (14:22)
[2021-06-17] MEDS ORDERED: Promethazine HCl 25 MG/ML VIAL IVPB PRN (14:22)
[2021-06-17] MEDS ORDERED: SUGAMMADEX SODIUM 200 MG/2 ML VIAL ONE (15:26)
[2021-06-17] MEDS ORDERED: Albuterol Sulfate 2.5 mg/3 ml Neb NEB PRN (16:06)
[2021-06-17] MEDS ORDERED: Morphine 2 MG/ML VIAL SLOW IVP PRN (16:15)
[2021-06-17] MEDS ORDERED: Propofol BOLUS 1,000 MG/100 ML VIAL IV PRN (16:15)
[2021-06-17] MEDS ORDERED: Ventilator Sedation Protocol 1 EACH FS SCH (16:15)
[2021-06-17] MEDS ORDERED: Fentanyl CADD 100 ML IV SCH (16:15)
[2021-06-17] MEDS ORDERED: Lorazepam 2 MG/ML VIAL SLOW IVP PRN (16:15)
[2021-06-17] MEDS ORDERED: Fentanyl BOLUS 250 ML IVPB PRN (16:15)
[2021-06-17] MEDS ORDERED: Propofol 1,000 MG/100 ML VIAL IV PRN (16:15)
[2021-06-17] MEDS ORDERED: DISCONTINUE PREVIOUS NARCOTIC PAIN MEDICATIONS AND BENZODIAZEPINES FS SCH (16:15)
[2021-06-17] MEDS: Multivitamins, Adult 10 ML, TRACE ELEMENT CONCENTRATE 1 ML in CLINIMIX E 5/20 2,000 ML IV SCH (17:41)
[2021-06-17 18:37] LABS: #Lymphocytes 0.8 thou/uL (1.20-3.40); #Monocytes 0.5 thou/uL (0.11-0.59); #Neutrophils 5.9 thou/uL (1.40-6.50); %Basophils 0.5 % (0.0-1.0); %Eosinophils 0.3 % (0.0-10.0); %Lymphocytes 11.4 % (21.0-51.0); %Monocytes 7.2 % (0.0-10.0); %Neutrophils 80.6 % (42.0-75.0); Hemoglobin 9.6 g/dL (12.0-16.0); Mean Corpuscular HGB CONC 33.6 g/dL (32.0-36.0); Mean Corpuscular Hemoglobin 32.4 pg (27.0-31.0); Mean Corpuscular Volume 96.7 fL (78.0-98.0); Mean Platelet Volume 9.3 fL (7.4-10.4); Platelet Count 201 thou/uL (130-400); RBC Distribution Width 14.5 % (11.5-14.5); Red Blood Cell (RBC) Count 2.95 mill/uL (4.20-5.40); White Blood Cell (WBC) Count 7.3 thou/uL (4.8-10.8)
[2021-06-17 18:57] LABS: Anion Gap 16 mmol/L (10-20); BUN (Urea Nitrogen) 4 mg/dL (9.8-20.1); Calc. Creatinine Clearance 98 mL/min (70-130); Calcium 8.2 mg/dL (7.8-10.44); Carbon Dioxide 17 mmol/L (23-31); Chloride 111 mmol/L (98-107); Glucose 241 mg/dL (80-115); Potassium 4.1 mmol/L (3.5-5.1); Sodium 140 mmol/L (136-145)
[2021-06-17] MEDS ORDERED: Dextrose 5% in Water 1,000 ML IV PRN (19:54)
[2021-06-17] MEDS ORDERED: Dextrose 50% Abboject 50 ML SYRINGE SLOW IVP PRN (19:54)
[2021-06-17] MEDS: cefTRIAXone\\ROCEPHIN 1 GM in Sodium Chloride 0.9% 100 ML IVPB SCH (19:55)
[2021-06-17] MEDS ORDERED: Morphine 4 MG/ML VIAL SLOW IVP PRN (20:01)
[2021-06-17] MEDS: Ketorolac Tromethamine 30 MG/ML VIAL IVP PRN (20:39)
[2021-06-17] MEDS ORDERED: Metoprolol Tartrate 25 MG TAB PO SCH (21:00)
[2021-06-17] MEDS: Insulin Regular 300 UNITS/3 ML VIAL SC PRN (21:28)
[2021-06-17] MEDS: Enoxaparin Sodium 40 MG/0.4 ML SYRINGE SC SCH (21:28)
[2021-06-17] MEDS: Metoprolol Tartrate 25 MG TAB PER TUBE SCH (21:35)
[2021-06-17] MEDS: Mirtazapine 30 MG TAB PO SCH (21:35)
[2021-06-17] MEDS: Pantoprazole 40 MG VIAL IVP SCH (21:36)
[2021-06-18] MEDS: Albumin 25% 25 GM/100 ML BOT IVPB SCH ×4 (01:57→16:30)
[2021-06-18 05:07] LABS: #Lymphocytes 0.5 thou/uL (1.20-3.40); #Monocytes 0.4 thou/uL (0.11-0.59); #Neutrophils 5.2 thou/uL (1.40-6.50); %Basophils 0.1 % (0.0-1.0); %Eosinophils 0.1 % (0.0-10.0); %Lymphocytes 8.3 % (21.0-51.0); %Monocytes 6.3 % (0.0-10.0); %Neutrophils 85.3 % (42.0-75.0); Hemoglobin 7.9 g/dL (12.0-16.0); Mean Corpuscular HGB CONC 33.4 g/dL (32.0-36.0); Mean Corpuscular Hemoglobin 32.2 pg (27.0-31.0); Mean Corpuscular Volume 96.5 fL (78.0-98.0); Mean Platelet Volume 9.9 fL (7.4-10.4); Platelet Count 150 thou/uL (130-400); RBC Distribution Width 14.8 % (11.5-14.5); Red Blood Cell (RBC) Count 2.46 mill/uL (4.20-5.40); White Blood Cell (WBC) Count 6.1 thou/uL (4.8-10.8)
[2021-06-18 05:29] LABS: ALT (SGPT) 17 U/L (8-55); AST (SGOT) 62 U/L (5-34); Albumin 2.6 g/dL (3.4-4.8); Alkaline Phosphatase 73 U/L (40-110); Anion Gap 14 mmol/L (10-20); BUN (Urea Nitrogen) 6 mg/dL (9.8-20.1); Bilirubin, Total 3.9 mg/dL (0.2-1.2); Calc. Creatinine Clearance 71 mL/min (70-130); Calcium 8.2 mg/dL (7.8-10.44); Carbon Dioxide 19 mmol/L (23-31); Chloride 107 mmol/L (98-107); Globulin 1.9 g/dL (2.4-3.5); Magnesium 1.8 mg/dL (1.6-2.6); Potassium 3.9 mmol/L (3.5-5.1); Protein, Total 4.5 g/dL (5.8-8.1); Sodium 136 mmol/L (136-145)
[2021-06-18 05:36] LABS: Glucose 664 mg/dL (80-115)
[2021-06-18] MEDS ORDERED: Magnesium 2 GM/50 ML 2 GM in Premix Bag 1 BAG IVPB SCH (05:45)
[2021-06-18] MEDS: Insulin Regular 300 UNITS/3 ML VIAL SC PRN ×3 (05:49→16:19)
[2021-06-18] MEDS: Pantoprazole 40 MG VIAL IVP SCH ×2 (09:08→20:29)
[2021-06-18] MEDS: Lantus 1000 UNITS/10 ML VIAL SC SCH (09:47)
[2021-06-18] MEDS: Ketorolac Tromethamine 30 MG/ML VIAL IVP PRN (12:46)
[2021-06-18] MEDS: Ondansetron PF 4 MG/2 ML Vial IVP PRN (12:51)
[2021-06-18] MEDS: Multivitamins, Adult 10 ML, TRACE ELEMENT CONCENTRATE 1 ML in CLINIMIX E 5/20 2,000 ML IV SCH (14:08)
[2021-06-18] MEDS ORDERED: Lorazepam 2 MG/ML VIAL ONE (14:56)
[2021-06-18] MEDS ORDERED: Furosemide 40 MG/4 ML VIAL ONE (15:03)
[2021-06-18] MEDS ORDERED: Furosemide 40 MG/4 ML VIAL SLOW IVP SCH (15:15)
[2021-06-18] MEDS: Morphine 4 MG/ML VIAL SLOW IVP PRN ×2 (15:17→20:55)
[2021-06-18] MEDS: Lorazepam 2 MG/ML VIAL SLOW IVP PRN (15:20)
[2021-06-18 16:01] VITALS: BP 129/68
[2021-06-18] MEDS: cefTRIAXone\\ROCEPHIN 1 GM in Sodium Chloride 0.9% 100 ML IVPB SCH (16:24)
[2021-06-18 19:57] LABS: Actual Bicarbonate (HCO3a) 20.1 mEq/L (22-28); CO2 Tension 42.5 mmHg (35.0-45.0); Calcium, Ionized (arterial) 1.25 mmol/L (1.12-1.30); Carboxyhemoglobin (COHb) 1.3 gm% (0.0-3.0); Potassium - ABG Lab 3.31 mmol/L (3.70-5.30); pH, Arterial 7.29 (7.35-7.45)
[2021-06-18 19:58] LABS: ALV-art Gradient 620.575 mmHg (0-20); O2 Tension (PaO2), arterial 39.3 mmHg (> 80.0); Puncture Site RRA
[2021-06-18] MEDS ORDERED: Furosemide 20 MG/2 ML VIAL SLOW IVP SCH (20:15)
[2021-06-18] MEDS ORDERED: Sodium Bicarb 50 MEQ/50 ML Abboject 8.4% SYRINGE IVP SCH (20:15)
[2021-06-18] MEDS: Enoxaparin Sodium 40 MG/0.4 ML SYRINGE SC SCH (20:28)
[2021-06-18] MEDS: Mirtazapine 30 MG TAB PO SCH (20:58)
[2021-06-18] MEDS: Metoprolol Tartrate 25 MG TAB PER TUBE SCH (20:58)
[2021-06-18 22:19] LABS: Actual Bicarbonate (HCO3a) 20.7 mEq/L (22-28); Base Excess (BEa) -5.5 mEq/L (-2.0 to +3.0); CO2 Tension 43.2 mmHg (35.0-45.0); Calcium, Ionized (arterial) 1.22 mmol/L (1.12-1.30); Carboxyhemoglobin (COHb) 0.1 gm% (0.0-3.0); Hemoglobin (Hb) 9.7 g/dL (12.0-16.0); O2 Tension (PaO2), arterial 65.9 mmHg (> 80.0); Potassium - ABG Lab 3.29 mmol/L (3.70-5.30)
[2021-06-18 22:22] LABS: Puncture Site RRA
[2021-06-19] MEDS: Albumin 25% 25 GM/100 ML BOT IVPB SCH (00:09)
[2021-06-19] MEDS: Norepinephrine 8 MG/0.9% NS 250 ML IVPB SCH ×5 (00:09→20:30)
[2021-06-19 03:01] LABS: Lactic Acid 5.9 mmol/L (0.5-2.2)
[2021-06-19 03:18] LABS: Band 14 % (5-11); Eosinophils 4 % (0-10); Hemoglobin 8.7 g/dL (12.0-16.0); Lymphocytes 64 % (21-51); MDiff Complete? YES; Mean Corpuscular HGB CONC 33.2 g/dL (32.0-36.0); Mean Corpuscular Hemoglobin 32.5 pg (27.0-31.0); Mean Corpuscular Volume 97.9 fL (78.0-98.0); Mean Platelet Volume 10.3 fL (7.4-10.4); Myelocyte 2 % (0-0); Neutrophil 8 % (42-75); Nucleated RBC 1 % (0); Platelet Count 135 thou/uL (130-400); RBC Distribution Width 14.4 % (11.5-14.5); Reactive Lymphocytes 8 % (0-10); Red Blood Cell (RBC) Count 2.66 mill/uL (4.20-5.40); Target Cells SLIGHT = 2-5 cells (100X) (0-1/hpf); White Blood Cell (WBC) Count 0.7 thou/uL (4.8-10.8)
[2021-06-19 03:46] LABS: Bilirubin Moderate (Negative); Blood, Urine Trace (Negative); Glucose, Urine (Dipstick) 250 mg/dL (Negative); Ketone, Urine Negative (Negative); Leukocyte Negative (Negative); Protein, Urine (Dipstick) Negative (Neg-Trace); Urobilinogen 0.2 mg/dL (Less than 2)
[2021-06-19 03:48] LABS: Clarity Hazy (Clear)
[2021-06-19 03:50] LABS: Bacteria/HPF None Seen HPF (None Seen); Nitrite Negative (Negative); RBC/HPF 0-3 HPF (0-3); Specific Gravity, Urine 1.019 (1.002-1.036)
[2021-06-19 03:52] LABS: Urine Culture Reflex No No
[2021-06-19] MEDS ORDERED: Sodium Bicarb 50 MEQ/50 ML Abboject 8.4% SYRINGE IVP SCH (04:00)
[2021-06-19] MEDS ORDERED: VANCOMYCIN IVPB SCH (04:00)
[2021-06-19 04:02] LABS: ALT (SGPT) 18 U/L (8-55); AST (SGOT) 61 U/L (5-34); Albumin 2.9 g/dL (3.4-4.8); Alkaline Phosphatase 114 U/L (40-110); Anion Gap 13 mmol/L (10-20); BUN (Urea Nitrogen) 8 mg/dL (9.8-20.1); Calc. Creatinine Clearance 71 mL/min (70-130); Calcium 8.6 mg/dL (7.8-10.44); Carbon Dioxide 21 mmol/L (23-31); Chloride 114 mmol/L (98-107); Globulin 1.7 g/dL (2.4-3.5); Glucose 142 mg/dL (80-115); Magnesium 1.9 mg/dL (1.6-2.6); Potassium 3.4 mmol/L (3.5-5.1); Protein, Total 4.6 g/dL (5.8-8.1); Sodium 145 mmol/L (136-145)
[2021-06-19] MEDS: Cefepime 2 GM in Sodium Chloride 0.9% 100 ML IVPB SCH ×2 (04:03→16:37)
[2021-06-19 04:19] LABS: Phosphorus 2.1 mg/dL (2.3-4.7)
[2021-06-19] MEDS ORDERED: Vancomycin 1.5 GRAM/300 ML BAG 1.5 GM in Premix Bag 1 BAG IVPB SCH (04:30)
[2021-06-19 04:32] LABS: Troponin I 0.038 ng/mL (< 0.028)
[2021-06-19] MEDS ORDERED: Albumin 25% 25 GM/100 ML BOT IVPB SCH (05:00)
[2021-06-19 05:35] VITALS: BMI 25.9
[2021-06-19 05:36] LABS: SARS-CoV-2 NAA Rapid Test DETECTED (NotDetected)
[2021-06-19] MEDS ORDERED: Dexamethasone 10 MG/ML VIAL SLOW IVP SCH (05:45)
[2021-06-19] MEDS ORDERED: Magnesium 2 GM/50 ML 2 GM in Premix Bag 1 BAG IVPB SCH (05:45)
[2021-06-19] MEDS: Potassium Chloride 20 MEQ in Premix Bag 1 BAG IVPB SCH ×2 (05:55→08:04)
[2021-06-19] MEDS ORDERED: Potassium Phosphate 30 MMOL in Sodium Chloride 0.9% 250 ML 250 ML IVPB SCH (07:45)
[2021-06-19] MEDS: Lantus 1000 UNITS/10 ML VIAL SC SCH (08:02)
[2021-06-19] MEDS: Pantoprazole 40 MG VIAL IVP SCH (08:04)
[2021-06-19] MEDS: Morphine 4 MG/ML VIAL SLOW IVP PRN (08:38)
[2021-06-19] MEDS ORDERED: Cefepime 2 GM in Sodium Chloride 0.9% 100 ML IVPB SCH (09:00)
[2021-06-19] MEDS: Multivitamins, Adult 10 ML, TRACE ELEMENT CONCENTRATE 1 ML in CLINIMIX E 5/20 2,000 ML IV SCH (11:41)
[2021-06-19] MEDS ORDERED: Adenosine 6 MG/2 ML VIAL ONE (12:35)
[2021-06-19] MEDS ORDERED: Adenosine 6 MG/2 ML VIAL IVP SCH (13:00)
[2021-06-19] MEDS: Amiodarone 450 MG in Dextrose 5% in Water 250 ML IVPB SCH ×2 (13:52→19:34)
[2021-06-19] MEDS ORDERED: Vancomycin 1 GM in Premix Bag 1 BAG IVPB SCH (17:00)
[2021-06-19] MEDS: Lorazepam 2 MG/ML VIAL SLOW IVP PRN (20:12)
[2021-06-19] MEDS ORDERED: Morphine 4 MG/ML VIAL SLOW IVP PRN (20:43)
[2021-06-19 22:08] VITALS: TEMP 98.3
[2021-06-20] MEDS ORDERED: Dexamethasone 10 MG/ML VIAL SLOW IVP SCH (09:00)
== END 2021-06-19 23:21 | disposition expired | DRG 326 ==
LOC: 2NO 22:37 → OBSVTOIN 06-13 11:03 → CCU 06-17 17:02
PROVIDERS: ADMIT Student in an Organized Health Care Education/Training Program; ATTEND Student in an Organized Health Care Education/Training Program
PROC: 30233N1 Transfusion of Nonautologous Red Blood Cells into Peripheral Vein, Percutaneous Approach (ICD-10-PCS; 2021-06-13)
PROC: 0DJ08ZZ Inspection of Upper Intestinal Tract, Via Natural or Artificial Opening Endoscopic (ICD-10-PCS; 2021-06-15)
PROC: 02HV33Z Insertion of Infusion Device into Superior Vena Cava, Percutaneous Approach (ICD-10-PCS; 2021-06-16)
PROC: B548ZZA Ultrasonography of Superior Vena Cava, Guidance (ICD-10-PCS; 2021-06-16)
PROC: 0FT40ZZ Resection of Gallbladder, Open Approach (ICD-10-PCS; principal; 2021-06-17)
PROC: 0FJ44ZZ Inspection of Gallbladder, Percutaneous Endoscopic Approach (ICD-10-PCS; 2021-06-17)
PROC: 0DN Gastrointestinal System, Release (ICD-10-PCS; 2021-06-17)
PROC: 0D9770Z Drainage of Stomach, Pylorus with Drainage Device, Via Natural or Artificial Opening (ICD-10-PCS; 2021-06-17)
PROC: 3E0336Z Introduction of Nutritional Substance into Peripheral Vein, Percutaneous Approach (ICD-10-PCS; 2021-06-17)
PROC: 3E033XZ Introduction of Vasopressor into Peripheral Vein, Percutaneous Approach (ICD-10-PCS; 2021-06-17)
PROC: 8E0ZXY6 Isolation (ICD-10-PCS; 2021-06-17)
DX: K95.09 Other complications of gastric band procedure (principal); E43 Unspecified severe protein-calorie malnutrition; U07.1 COVID-19; J96.01 Acute respiratory failure with hypoxia; A41.89 Other specified sepsis; R65.21 Severe sepsis with septic shock; E87.2 Acidosis; R64 Cachexia; N39.0 Urinary tract infection, site not specified; K31.5 Obstruction of duodenum; Z66 Do not resuscitate; E88.89 Other specified metabolic disorders; Z20.822 Contact with and (suspected) exposure to COVID-19; R29.6 Repeated falls; R13.10 Dysphagia, unspecified; I10 Essential (primary) hypertension; E87.6 Hypokalemia; D50.9 Iron deficiency anemia, unspecified; E83.42 Hypomagnesemia; K70.0 Alcoholic fatty liver; K57.90 Diverticulosis of intestine, part unspecified, without perforation or abscess without bleeding; K80.20 Calculus of gallbladder without cholecystitis without obstruction; E86.0 Dehydration; F10.20 Alcohol dependence, uncomplicated; K31.89 Other diseases of stomach and duodenum; B96.20 Unspecified Escherichia coli [E. coli] as the cause of diseases classified elsewhere; Y83.8 Other surgical procedures as the cause of abnormal reaction of the patient, or of later complication, without mention of misadventure at the time of the procedure; Z88.1 Allergy status to other antibiotic agents; Z88.2 Allergy status to sulfonamides; Z88.0 Allergy status to penicillin; Z88.8 Allergy status to other drugs, medicaments and biological substances; Z79.899 Other long term (current) drug therapy; Z98.84 Bariatric surgery status; Z98.890 Other specified postprocedural states; Z68.25 Body mass index [BMI] 25.0-25.9, adult; R73.9 Hyperglycemia, unspecified; R57.0 Cardiogenic shock; R57.1 Hypovolemic shock
CPT/HCPCS: 36415; 36416; 36430; 36569; 36600; 71045; 80048; 80053; 80307; 81001; 82607; 82746; 82805; 83605; 83690; 83735; 84100; 84484; 85025; 86850; 86900; 86901; 87040; 87077; 87086; 87186; 93306; 94002; 94660; 96374; A4649; C1713; C1751; C9113; G0378; J0153; J0282; J0692; J0696; J1100; J1170; J1650; J1815; J1885; J1940; J2060; J2250; J2270; J2370; J2405; J2704; J3010; J3370; J3411; J3475; J3480; J3490; J7050; J7070; J7120; P9016; P9045; P9047; Q0162; U0002